=== PATIENT | male | born 1985 | race African-American/Black ===

== ENCOUNTER 2018-07-23 21:06 | Emergency (ER) | payer BC, SELFPAY ==
[2018-07-23] MEDS ORDERED: Lidocaine Viscous Sol 2% 15 ml UD Cup ONE (21:27)
[2018-07-23] MEDS ORDERED: Mag-Al Plus 1200 MG/1200 MG/120 MG/30 ML UDCUP ONE (21:27)
== END 2018-07-23 21:50 | disposition home or self-care (01) ==
LOC: SCSER 21:06
DX: R10.13 Epigastric pain (principal); J45.909 Unspecified asthma, uncomplicated; F17.210 Nicotine dependence, cigarettes, uncomplicated
CPT/HCPCS: 99283